=== PATIENT | male | born 1990 | race Caucasian/White ===

== ENCOUNTER → 2018-12-14 | Outpatient (CLI) | payer OTHER ==
[2018-12-14 16:21] LABS: BASOPHILS ABSOLUTE AUTO 0.04 K/mm3 (0.00-0.23); BASOPHILS PERCENT AUTO 1 % (0-2); EOSINOPHILS ABSOLUTE AUTO 0.12 K/mm3 (0.00-0.68); EOSINOPHILS PERCENT AUTO 2 % (0-6); Hematocrit 44.6 % (37.0-53.0); Hemoglobin 15.2 g/dL (13.5-17.5); IMMATURE GRAN ABSOLUTE AUTO 0.05 K/mm3 (0.00-0.10); IMMATURE GRAN PERCENT AUTO 1 % (0-1); LYMPHOCYTES ABSOLUTE AUTO 1.19 K/mm3 (0.84-5.20); LYMPHOCYTES PERCENT AUTO 15 % (21-46); MONOCYTES ABSOLUTE AUTO 0.79 K/mm3 (0.16-1.47); MONOCYTES PERCENT AUTO 10 % (4-13); Mean Corpuscular HGB 31.9 pg (26.0-34.0); Mean Corpuscular HGB Conc 34.1 g/dL (31.5-36.5); Mean Corpuscular Volume 94 fL (80-100); Mean Platelet Volume 11.3 fL (9.1-12.4); NEUTROPHILS ABSOLUTE AUTO 5.55 K/mm3 (1.96-9.15); NEUTROPHILS PERCENT AUTO 72 % (41-73); Platelet Count 225 K/mm3 (150-400); RDW Coefficient Variation 13.2 % (11.7-14.2); RDW Standard Deviation 45.1 fL (35.1-46.3); Red Blood Cell Count 4.76 M/mm3 (4.30-5.90); White Blood Cell Count 7.74 K/mm3 (4.00-11.30)
[2018-12-14 16:49] LABS: Alanine Aminotransfer (ALT/SGP 130 U/L (12-78); Albumin, Blood 3.8 g/dL (3.4-5.0); Albumin/Globulin Ratio 1.1 (0.8-1.8); Alk Phos 91 U/L (50-136); Anion Gap 6 mmol/L (6-16); Aspartate Aminotrans (AST/SGOT 72 U/L (12-37); Bilirubin, Total 0.5 mg/dL (0.1-1.0); Blood Urea Nitrogen 12 mg/dL (8-24); Bun/Creatinine Ratio 16.9 (12.0-20.0); CO2, Blood 28 mmol/L (21-32); Chloride, Blood 105 mmol/L (98-108); Creatinine, Blood 0.71 mg/dL (0.60-1.20); Globulin, Blood 3.6 g/dL (2.2-4.0); Glomerular Filtration Rate >60 (60-); Glucose, Blood 92 mg/dL (70-99); Potassium, Blood 3.9 mmol/L (3.5-5.5); Sodium, Blood 139 mmol/L (136-145); Total Protein, Blood 7.4 g/dL (6.4-8.2); Uric Acid, Blood 6.5 mg/dL (3.5-7.2)
== END ==
LOC: LAB 16:09 → LAB SHORT 16:09
PROVIDERS: Family Medicine
DX: M79.672 Pain in left foot (principal)
CPT/HCPCS: 80053; 84550; 85025

== ENCOUNTER 2022-10-02 08:42 | Emergency (ER) | payer OTHER ==
[~2022-10-02] VITALS: Ht 167.6 cm; Wt 125.6 kg
[2022-10-02 09:58] LABS: BASOPHILS ABSOLUTE AUTO 0.06 K/mm3 (0.00-0.23); BASOPHILS PERCENT AUTO 1 % (0-2); EOSINOPHILS ABSOLUTE AUTO 0.25 K/mm3 (0.00-0.68); EOSINOPHILS PERCENT AUTO 3 % (0-6); Hematocrit 46.4 % (37.0-53.0); Hemoglobin 15.8 g/dL (13.5-17.5); IMMATURE GRAN ABSOLUTE AUTO 0.02 K/mm3 (0.00-0.10); IMMATURE GRAN PERCENT AUTO 0 % (0-1); LYMPHOCYTES ABSOLUTE AUTO 1.48 K/mm3 (0.84-5.20); LYMPHOCYTES PERCENT AUTO 20 % (21-46); MONOCYTES ABSOLUTE AUTO 0.68 K/mm3 (0.16-1.47); MONOCYTES PERCENT AUTO 9 % (4-13); Mean Corpuscular HGB 30.6 pg (26.0-34.0); Mean Corpuscular HGB Conc 34.1 g/dL (31.5-36.5); Mean Corpuscular Volume 90 fL (80-100); Mean Platelet Volume 10.9 fL (9.1-12.4); NEUTROPHILS ABSOLUTE AUTO 4.95 K/mm3 (1.96-9.15); NEUTROPHILS PERCENT AUTO 67 % (41-73); Platelet Count 219 K/mm3 (150-400); RDW Coefficient Variation 12.7 % (11.7-14.2); RDW Standard Deviation 41.7 fL (35.1-46.3); Red Blood Cell Count 5.16 M/mm3 (4.30-5.90); White Blood Cell Count 7.44 K/mm3 (4.00-11.30)
[2022-10-02 10:21] LABS: Albumin, Blood 3.9 g/dL (3.4-5.0); Albumin/Globulin Ratio 1.1 (0.8-1.8); Bilirubin, Total 0.9 mg/dL (0.1-1.0); Bun/Creatinine Ratio 20.7 (12.0-20.0); Calcium, Blood 9.3 mg/dL (8.5-10.1); Creatinine, Blood 0.68 mg/dL (0.60-1.20); Globulin, Blood 3.5 g/dL (2.2-4.0); Potassium, Blood 4.3 mmol/L (3.5-5.5); Total Protein, Blood 7.4 g/dL (6.4-8.2)
[2022-10-02 11:34] LABS: Creatine Kinase MB 1.8 ng/mL (0.0-3.6); Creatine Kinase MB Index 1.5 (0.0-4.0)
[2022-10-02 11:41] LABS: International Normalized Ratio 1.02; Prothrombin Time Results 10.7 Sec (9.7-11.5)
[2022-10-02 11:51] LABS: Source, Urine Clean Catch
[2022-10-02 11:55] LABS: Bilirubin, Urine Neg (Neg); Blood, Urine Neg (Neg); Glucose Qualitative, Urine Neg (Neg); Ketones, Urine Neg (Neg); Leukocyte Esterase, Urine Neg (Neg); Nitrite, Urine Neg (Neg); Protein, Urine Neg (Neg); Urobilinogen, Urine NORM (Normal); pH, Urine 6.5 (5.0-8.0)
[2022-10-02 12:02] LABS: Appearance, Urine Clear (Clear); Color, Urine Yellow (P-Yellow)
== END 2022-10-02 14:30 | disposition home or self-care (01) ==
LOC: ER 08:42
PROVIDERS: Emergency Medicine; Student in an Organized Health Care Education/Training Program
DX: R10.12 Left upper quadrant pain (principal); R10.32 Left lower quadrant pain; R74.01 Elevation of levels of liver transaminase levels; E66.9 Obesity, unspecified; Z68.41 Body mass index [BMI] 40.0-44.9, adult
CPT/HCPCS: 36415; 74177; 76705; 80053; 81003; 82550; 82553; 83690; 85025; 85610; 85730; A9270; Q9967

== ENCOUNTER 2023-03-06 11:26 | Day surgery (SDC) | payer OTHER ==
[~2023-03-06] VITALS: Ht 167.6 cm; Wt 123.4 kg
[2023-03-06] MEDS ORDERED: Prevacid Soluta30 MG (11:46)
[2023-03-06] MEDS ORDERED: METPHE27ER (11:46)
[2023-03-06] MEDS ORDERED: LITH300C (11:46)
[2023-03-06] MEDS ORDERED: METHYLFOLATE1 EACH (11:46)
[2023-03-06 14:12] VITALS: BP 128/95
== END 2023-03-06 14:10 | disposition home or self-care (01) ==
LOC: ORSCSDS 11:26
PROVIDERS: Internal Medicine Gastroenterology
PROC: 0DBG8ZX Excision of Left Large Intestine, Via Natural or Artificial Opening Endoscopic, Diagnostic (ICD-10-PCS; principal; 2023-03-06 12:45)
PROC: 0DBB8ZX Excision of Ileum, Via Natural or Artificial Opening Endoscopic, Diagnostic (ICD-10-PCS; principal; 2023-03-06 12:45)
PROC: 0DBP8ZX Excision of Rectum, Via Natural or Artificial Opening Endoscopic, Diagnostic (ICD-10-PCS; principal; 2023-03-06 12:45)
PROC: 0DBK8ZX Excision of Ascending Colon, Via Natural or Artificial Opening Endoscopic, Diagnostic (ICD-10-PCS; principal; 2023-03-06 12:45)
PROC: 0DBH8ZX Excision of Cecum, Via Natural or Artificial Opening Endoscopic, Diagnostic (ICD-10-PCS; principal; 2023-03-06 12:45)
PROC: 0DBL8ZX Excision of Transverse Colon, Via Natural or Artificial Opening Endoscopic, Diagnostic (ICD-10-PCS; principal; 2023-03-06 12:45)
DX: R19.4 Change in bowel habit (principal); R79.89 Other specified abnormal findings of blood chemistry; K64.8 Other hemorrhoids; R19.7 Diarrhea, unspecified; K57.50 Diverticulosis of both small and large intestine without perforation or abscess without bleeding; R74.8 Abnormal levels of other serum enzymes; E11.9 Type 2 diabetes mellitus without complications; K75.81 Nonalcoholic steatohepatitis (NASH); I10 Essential (primary) hypertension; G47.33 Obstructive sleep apnea (adult) (pediatric); K21.9 Gastro-esophageal reflux disease without esophagitis; F90.9 Attention-deficit hyperactivity disorder, unspecified type; E66.9 Obesity, unspecified; Z68.42 Body mass index [BMI] 45.0-49.9, adult; Z79.899 Other long term (current) drug therapy
CPT/HCPCS: 82947; 88305; J2704; J7120

== ENCOUNTER 2023-05-22 06:41 | Emergency (ER) | payer OTHER ==
[~2023-05-22] VITALS: Ht 198.1 cm; Wt 118.8 kg
[~2023-05-22 06:41] MED LIST: LITH300C; METHYLFOLATE1 EACH; METPHE27ER; Prevacid Soluta30 MG
[2023-05-22 08:05] LABS: BASOPHILS ABSOLUTE AUTO 0.05 K/mm3 (0.00-0.23); BASOPHILS PERCENT AUTO 1 % (0-2); EOSINOPHILS ABSOLUTE AUTO 0.27 K/mm3 (0.00-0.68); EOSINOPHILS PERCENT AUTO 4 % (0-6); Hematocrit 46.6 % (37.0-53.0); Hemoglobin 15.9 g/dL (13.5-17.5); IMMATURE GRAN ABSOLUTE AUTO 0.03 K/mm3 (0.00-0.10); IMMATURE GRAN PERCENT AUTO 0 % (0-1); LYMPHOCYTES ABSOLUTE AUTO 1.12 K/mm3 (0.84-5.20); LYMPHOCYTES PERCENT AUTO 15 % (21-46); MONOCYTES ABSOLUTE AUTO 0.66 K/mm3 (0.16-1.47); MONOCYTES PERCENT AUTO 9 % (4-13); Mean Corpuscular HGB 30.8 pg (26.0-34.0); Mean Corpuscular HGB Conc 34.1 g/dL (31.5-36.5); Mean Corpuscular Volume 90 fL (80-100); Mean Platelet Volume 11.1 fL (9.1-12.4); NEUTROPHILS ABSOLUTE AUTO 5.12 K/mm3 (1.96-9.15); NEUTROPHILS PERCENT AUTO 71 % (41-73); Platelet Count 214 K/mm3 (150-400); RDW Coefficient Variation 12.2 % (11.7-14.2); RDW Standard Deviation 40.3 fL (35.1-46.3); Red Blood Cell Count 5.17 M/mm3 (4.30-5.90); White Blood Cell Count 7.25 K/mm3 (4.00-11.30)
[2023-05-22 08:37] LABS: Albumin, Blood 3.7 g/dL (3.4-5.0); Bilirubin, Total 0.4 mg/dL (0.1-1.0); Bun/Creatinine Ratio 15.2 (12.0-20.0); Calcium, Blood 8.8 mg/dL (8.5-10.1); Creatinine, Blood 0.66 mg/dL (0.60-1.20); Globulin, Blood 3.6 g/dL (2.2-4.0); Potassium, Blood 4.5 mmol/L (3.5-5.5); Total Protein, Blood 7.3 g/dL (6.4-8.2)
[2023-05-22] MEDS ORDERED: PRED20 PO (08:50)
[2023-05-22 09:30] VITALS: BP 138/85
== END 2023-05-22 10:00 | disposition home or self-care (01) ==
LOC: ER 06:41
PROVIDERS: Student in an Organized Health Care Education/Training Program
DX: R10.9 Unspecified abdominal pain (principal); Z79.899 Other long term (current) drug therapy; E11.9 Type 2 diabetes mellitus without complications
CPT/HCPCS: 80053; 85025; 99284; J7512

== ENCOUNTER 2023-10-28 07:48 | Emergency (ER) | payer OTHER ==
[~2023-10-28] VITALS: Ht 167.6 cm; Wt 122.5 kg
[~2023-10-28 07:48] MED LIST changes: +PRED20 PO
[2023-10-28] MEDS ORDERED: BUSPIRONE HCL30 M6 PO (08:43)
[2023-10-28] MEDS ORDERED: SUCRALFATE114 PO (08:43)
[2023-10-28] MEDS ORDERED: ZOLPIDEM TARTRA10 MG PO (08:43)
[2023-10-28] MEDS ORDERED: CLONAZEPAM1 MG PO (08:44)
[2023-10-28] MEDS ORDERED: NS 1,000 ML IV SCH (08:55)
[2023-10-28] MEDS ORDERED: Ketorolac Tromethamine 30mg Vial IV ONE (08:55)
[2023-10-28] MEDS ORDERED: Ondansetron HCl 2 MG / ML 2ML Vial IV ONE (08:55)
[2023-10-28] MEDS ORDERED: Ipratropium/Albuterol SulF 2.5-0.5MG/3 ML Amp INH ONE (08:55)
[2023-10-28 09:06] LABS: BASOPHILS ABSOLUTE AUTO 0.06 K/mm3 (0.00-0.23); BASOPHILS PERCENT AUTO 1 % (0-2); EOSINOPHILS ABSOLUTE AUTO 0.49 K/mm3 (0.00-0.68); EOSINOPHILS PERCENT AUTO 7 % (0-6); Hematocrit 48.7 % (37.0-53.0); Hemoglobin 16.4 g/dL (13.5-17.5); IMMATURE GRAN ABSOLUTE AUTO 0.02 K/mm3 (0.00-0.10); IMMATURE GRAN PERCENT AUTO 0 % (0-1); LYMPHOCYTES ABSOLUTE AUTO 1.53 K/mm3 (0.84-5.20); LYMPHOCYTES PERCENT AUTO 22 % (21-46); MONOCYTES ABSOLUTE AUTO 0.82 K/mm3 (0.16-1.47); MONOCYTES PERCENT AUTO 12 % (4-13); Mean Corpuscular HGB 30.3 pg (26.0-34.0); Mean Corpuscular HGB Conc 33.7 g/dL (31.5-36.5); Mean Corpuscular Volume 90 fL (80-100); Mean Platelet Volume 11.4 fL (9.1-12.4); NEUTROPHILS ABSOLUTE AUTO 4.18 K/mm3 (1.96-9.15); NEUTROPHILS PERCENT AUTO 59 % (41-73); Platelet Count 216 K/mm3 (150-400); RDW Coefficient Variation 12.8 % (11.7-14.2); RDW Standard Deviation 41.8 fL (35.1-46.3); Red Blood Cell Count 5.41 M/mm3 (4.30-5.90)
[2023-10-28 09:36] LABS: Albumin, Blood 3.9 g/dL (3.4-5.0); Albumin/Globulin Ratio 1.1 (0.8-1.8); Bilirubin, Direct 0.1 mg/dL (0.0-0.3); Bilirubin, Indirect 1.1 mg/dL (0.1-0.7); Bilirubin, Total 1.2 mg/dL (0.1-1.0); Bun/Creatinine Ratio 10.2 (12.0-20.0); Calcium, Blood 9.2 mg/dL (8.5-10.1); Creatinine, Blood 0.78 mg/dL (0.60-1.20); Globulin, Blood 3.5 g/dL (2.2-4.0); Magnesium, Blood 2.3 mg/dL (1.6-2.4); Potassium, Blood 4.3 mmol/L (3.5-5.5); Total Protein, Blood 7.4 g/dL (6.4-8.2)
[2023-10-28] MEDS ORDERED: Atropine/Scopalam/Hyoscam/PB 5 ML UDC PO ONE (11:05)
[2023-10-28] MEDS ORDERED: Mag Hydrox/AL Hydrox/Simeth 30 ML UDC PO ONE (11:05)
[2023-10-28] MEDS ORDERED: PredniSONE 20 MG Tab PO ONE (11:05)
[2023-10-28] MEDS ORDERED: Albuterol 2.5 MG/3 ML VIAL INH SCH (11:05)
[2023-10-28 11:30] VITALS: BP 125/72
[2023-10-28] MEDS ORDERED: FAMO20 PO (11:38)
[2023-10-28] MEDS ORDERED: ONDA4ODT MM (11:38)
[2023-10-28] MEDS ORDERED: PRED20 PO (11:38)
[2023-10-28] MEDS ORDERED: ALBU90OI INH (11:38)
[2023-10-28] MEDS ORDERED: PANT20 PO (11:38)
[2023-10-30 12:58] LABS: HEPATITIS A ANTIBODY, IGM Negative (Negative); HEPATITIS B CORE ANTIBODY, IGM Negative (Negative); HEPATITIS B SURFACE ANTIGEN Negative (Negative); HEPATITIS C AB CIA INTERP Negative (Negative); HEPATITIS C ANTIBODY CIA INDEX 0.02 IV
== END 2023-10-28 11:54 | disposition home or self-care (01) ==
LOC: ER 07:48
PROVIDERS: Student in an Organized Health Care Education/Training Program
DX: R10.11 Right upper quadrant pain (principal); R10.13 Epigastric pain; J20.9 Acute bronchitis, unspecified; R74.01 Elevation of levels of liver transaminase levels; R11.0 Nausea; K74.60 Unspecified cirrhosis of liver; K76.0 Fatty (change of) liver, not elsewhere classified; E11.9 Type 2 diabetes mellitus without complications; G47.30 Sleep apnea, unspecified; F90.9 Attention-deficit hyperactivity disorder, unspecified type; Z79.899 Other long term (current) drug therapy
CPT/HCPCS: 71046; 74177; 80048; 80074; 80076; 83690; 83735; 85025; 94640; 94664; 96361; 96374-59; 96375; 99284-25; A9270; J1885; J2405; J7030; J7512; Q9967

== ENCOUNTER 2024-08-16 19:39 | Emergency (ER) | payer OTHER ==
[~2024-08-16] VITALS: Ht 167.6 cm; Wt 129.3 kg
[~2024-08-16 19:39] MED LIST changes: +ALBU90OI INH; +BUSPIRONE HCL30 M6 PO; +CLONAZEPAM1 MG PO; +FAMO20 PO; +ONDA4ODT MM; +PANT20 PO; +SUCRALFATE114 PO; +ZOLPIDEM TARTRA10 MG PO
[2024-08-16 20:39] LABS: Source, Urine Clean Catch
[2024-08-16 20:43] LABS: Appearance, Urine Clear (Clear); Bilirubin, Urine Neg (Neg); Blood, Urine Neg (Neg); Glucose Qualitative, Urine 4+ (Neg); Ketones, Urine Neg (Neg); Leukocyte Esterase, Urine Neg (Neg); Nitrite, Urine Neg (Neg); Protein, Urine Neg (Neg); Urobilinogen, Urine NORM (Normal)
[2024-08-16 20:44] LABS: Base Excess Venous 4.4 mmol/L; Bicarbonate Venous 26.5 mmol/L (24.0-30.0); PCO2 Venous 51.4 mmHg (38-42); pH Blood Venous 7.37 (7.34-7.37)
[2024-08-16] MEDS ORDERED: Lactated Ringer's 1,000 ML IV ONE (20:50)
[2024-08-16 21:02] LABS: Color, Urine Yellow (P-Yellow)
[2024-08-16 21:09] LABS: BASOPHILS ABSOLUTE AUTO 0.07 K/mm3 (0.00-0.23); BASOPHILS PERCENT AUTO 1 % (0-2); EOSINOPHILS ABSOLUTE AUTO 0.25 K/mm3 (0.00-0.68); EOSINOPHILS PERCENT AUTO 3 % (0-6); Hematocrit 43.3 % (37.0-53.0); Hemoglobin 15.6 g/dL (13.5-17.5); IMMATURE GRAN ABSOLUTE AUTO 0.03 K/mm3 (0.00-0.10); IMMATURE GRAN PERCENT AUTO 0 % (0-1); LYMPHOCYTES ABSOLUTE AUTO 1.51 K/mm3 (0.84-5.20); LYMPHOCYTES PERCENT AUTO 17 % (21-46); MONOCYTES ABSOLUTE AUTO 0.76 K/mm3 (0.16-1.47); MONOCYTES PERCENT AUTO 9 % (4-13); Mean Corpuscular HGB 31.3 pg (26.0-34.0); Mean Corpuscular Volume 87 fL (80-100); Mean Platelet Volume 12.4 fL (9.1-12.4); NEUTROPHILS ABSOLUTE AUTO 6.18 K/mm3 (1.96-9.15); NEUTROPHILS PERCENT AUTO 70 % (41-73); Platelet Count 213 K/mm3 (150-400); RDW Coefficient Variation 12.4 % (11.7-14.2); RDW Standard Deviation 39.5 fL (35.1-46.3); Red Blood Cell Count 4.98 M/mm3 (4.30-5.90)
[2024-08-16 21:30] VITALS: BP 152/91
[2024-08-16] MEDS ORDERED: AMITRIPTYLINE H25 MG PO (21:33)
[2024-08-16] MEDS ORDERED: AUVELITY ER 451 EACH PO (21:34)
[2024-08-16 21:46] LABS: Beta-hydroxybutyrate 2.2 mg/dL (0.2-2.8); Magnesium, Blood 2.3 mg/dL (1.6-2.4)
[2024-08-16] MEDS ORDERED: Lactated Ringer's 1,000 ML IV SCH (22:00)
[2024-08-16 22:14] LABS: Albumin, Blood 3.8 g/dL (3.4-5.0); Bilirubin, Total 0.7 mg/dL (0.1-1.0); Bun/Creatinine Ratio 14.1 (12.0-20.0); Calcium, Blood 8.8 mg/dL (8.5-10.1); Creatinine, Blood 0.78 mg/dL (0.60-1.20); Globulin, Blood 3.8 g/dL (2.2-4.0); Phosphorus, Blood 3.8 mg/dL (2.5-4.9); Potassium, Blood 3.8 mmol/L (3.5-5.5); Total Protein, Blood 7.6 g/dL (6.4-8.2)
[2024-08-16] MEDS ORDERED: METF500 PO (22:50)
[2024-08-16] MEDS ORDERED: MetFORMIN HCl 500 mg PO ONE (22:55)
== END 2024-08-16 23:24 | disposition home or self-care (01) ==
LOC: ER 19:39
PROVIDERS: Student in an Organized Health Care Education/Training Program
DX: E11.65 Type 2 diabetes mellitus with hyperglycemia (principal); G47.30 Sleep apnea, unspecified; Z79.899 Other long term (current) drug therapy
CPT/HCPCS: 80053; 81003; 82010; 82803; 82947; 83735; 84100; 85025; 93005; 93010; 96360; 96361; 99285-25; A9270; J7120

== ENCOUNTER 2024-08-17 07:27 | Emergency (ER) | payer OTHER ==
[~2024-08-17] VITALS: Ht 167.6 cm; Wt 129.3 kg
[~2024-08-17 07:27] MED LIST changes: +AMITRIPTYLINE H25 MG PO; +AUVELITY ER 451 EACH PO; +METF500 PO
[2024-08-17] MEDS ORDERED: Lactated Ringer's 1,000 ML IV ONE (08:30)
[2024-08-17] MEDS ORDERED: Ondansetron HCl 2 MG / ML 2ML Vial IV ONE ×2 (08:30→10:40)
[2024-08-17 09:03] LABS: BASOPHILS ABSOLUTE AUTO 0.05 K/mm3 (0.00-0.23); BASOPHILS PERCENT AUTO 1 % (0-2); EOSINOPHILS ABSOLUTE AUTO 0.34 K/mm3 (0.00-0.68); EOSINOPHILS PERCENT AUTO 6 % (0-6); Hematocrit 41.2 % (37.0-53.0); Hemoglobin 14.8 g/dL (13.5-17.5); IMMATURE GRAN ABSOLUTE AUTO 0.02 K/mm3 (0.00-0.10); IMMATURE GRAN PERCENT AUTO 0 % (0-1); LYMPHOCYTES ABSOLUTE AUTO 1.25 K/mm3 (0.84-5.20); LYMPHOCYTES PERCENT AUTO 21 % (21-46); MONOCYTES ABSOLUTE AUTO 0.48 K/mm3 (0.16-1.47); MONOCYTES PERCENT AUTO 8 % (4-13); Mean Corpuscular HGB 31.8 pg (26.0-34.0); Mean Corpuscular HGB Conc 35.9 g/dL (31.5-36.5); Mean Corpuscular Volume 88 fL (80-100); Mean Platelet Volume 11.6 fL (9.1-12.4); NEUTROPHILS ABSOLUTE AUTO 3.71 K/mm3 (1.96-9.15); NEUTROPHILS PERCENT AUTO 63 % (41-73); Platelet Count 187 K/mm3 (150-400); RDW Coefficient Variation 12.4 % (11.7-14.2); RDW Standard Deviation 40.5 fL (35.1-46.3); Red Blood Cell Count 4.66 M/mm3 (4.30-5.90); White Blood Cell Count 5.85 K/mm3 (4.00-11.30)
[2024-08-17 09:28] LABS: Magnesium, Blood 1.9 mg/dL (1.6-2.4)
[2024-08-17 09:39] LABS: Albumin, Blood 3.5 g/dL (3.4-5.0); Bilirubin, Total 0.7 mg/dL (0.1-1.0); Bun/Creatinine Ratio 18.5 (12.0-20.0); Calcium, Blood 8.2 mg/dL (8.5-10.1); Creatinine, Blood 0.76 mg/dL (0.60-1.20); Globulin, Blood 3.5 g/dL (2.2-4.0)
[2024-08-17 10:49] LABS: Base Excess Venous 2.9 mmol/L; Bicarbonate Venous 26.7 mmol/L (24.0-30.0); PCO2 Venous 40.9 mmHg (38-42); pH Blood Venous 7.43 (7.34-7.37)
[2024-08-17] MEDS ORDERED: Insulin Regular 100 Unit/ML 1ML Dose IV ONE (11:30)
[2024-08-17 12:00] VITALS: BP 141/86
== END 2024-08-17 12:29 | disposition home or self-care (01) ==
LOC: ER 07:27
PROVIDERS: Physician Assistant
DX: E11.65 Type 2 diabetes mellitus with hyperglycemia (principal); G47.30 Sleep apnea, unspecified; Z79.84 Long term (current) use of oral hypoglycemic drugs; Z79.899 Other long term (current) drug therapy
CPT/HCPCS: 80053; 82010; 82803; 82947; 83735; 85025; 96361; 96374; 99284-25; J1815; J2405; J7120